=== PATIENT | female | born 1985 | race Caucasian/White ===

== ENCOUNTER 2025-01-08 13:02 | Emergency (ER) | payer OTHER ==
[2025-01-08] MEDS: Diphtheria,Pertussis(Acell),Tetanus Vaccine 0.5 ML Syringe IM ONE (13:56)
== END 2025-01-08 16:26 | disposition home or self-care (01) ==
LOC: JP.ED 13:02
DX: S00.85XA Superficial foreign body of other part of head, initial encounter (principal); W45.8XXA Other foreign body or object entering through skin, initial encounter; Z23 Encounter for immunization
CPT/HCPCS: 90471; 90715; 99283; J2003